=== PATIENT | female | born 1980 | race Caucasian/White ===

== ENCOUNTER 2019-03-19 15:51 | Emergency (ER) | payer MEDICAID, SELFPAY ==
[2019-03-19 15:51] VITALS: BP 110/72; PULSE 85; RESP 16; TEMP 36.7; O2SAT 100
[2019-03-19 16:16] LABS: Absolute Lymphocyte Count 1.92 X10^3/uL (0.83-4.51); Basophil# 0.05 X10^3/uL; Basophil% 0.6 % (0-1); Eosinophil# 0.11 X10^3/uL; Eosinophils% 1.4 % (0-5); Hematocrit 39.8 % (37-47); Hemoglobin 13.6 g/dL (12.0-15.0); Lymphocyte # 1.92 X10^3/ul (4.0); Lymphocyte % 24.8 % (19-41); Mean Corp Hgb Conc 34.2 g/dL (32-36); Mean Corpuscular Hgb 30.7 pg (27.0-32.0); Mean Corpuscular Volume 89.8 fL (81-99); Mean Platelet Vol. 10.5 fl (6.2-12.0); Monocyte# 0.62 X10^3/uL; NRBC Flagged by Analyzer 0 % (0-5); Neutrophil # 5.04 X10^3/uL (2.7-7.7); Neutrophil % 65.1 % (47-70); Platelet Count 218 K/mm3 (150-450); RBC Distribution Width SD 39.7 fl (35.1-43.9); Red Blood Count 4.43 M/mm3 (4.2-5.4); White Blood Count 7.8 K/mm3 (4.4-11.0)
[2019-03-19 16:32] LABS: Internal QC Validated? YES +Cl - CLEAR BKGD; Pregnancy, Serum, hCG Quali. NEGATIVE Negative
[2019-03-19 16:36] LABS: Anion Gap 3 (5-15); BUN 10 mg/dL (7-18); BUN/Creat Ratio 11.8 RATIO (10-20); Calcium,Total 9.2 mg/dL (8.5-10.1); Chloride 107 mmol/L (98-107); Creatinine, Serum 0.85 mg/dL (0.55-1.02); EST Glomerular Filtration Rate 79 mL/min (>60); Est Glom Filt Rate - Afr Amer 96 mL/min (>60); Estimated Creatinine Clearance 89.64 ml/min; Glucose 91 mg/dL (74-106); Potassium 4.2 mmol/L (3.5-5.1); Sodium Level 137 mmol/L (136-145)
--- NOTE | 2019-03-19 16:54 | ED.VISSUMM ---
- ER Visit Summary Date of Service: 03/19/19 Chief Complaint: Abdominal pain History of Present Illness: The patient is a 39 F presenting with abdominal pain. She states this started this morning. She complains of epigastric abdominal pain. She denies nausea or vomiting. She states she had diarrhea today. She denies blood in her stool. Denies fever. Denies urinary complaints. Denies chest pain or shortness of breath. She states the symptoms are starting to subside. Denies other complaints. Physical Examination: Vitals are stable. Patient is afebrile. Alert no acute distress. HEENT exam is unremarkable. Neck is supple. Lungs are clear and equal bilaterally. Heart is regular rate and rhythm. Abdomen is soft nontender nondistended. No guarding or rebound Extremities are unremarkable. Skin is warm and dry. No focal neurologic deficit. Remainder of exam is unremarkable. Emergency Department Course and Treatment: CBC, chemistries unremarkable. Total bili 1.8. Direct bili 0.31. Lipase is normal. hCG negative. Gallbladder ultrasound shows mild R right hydronephrosis. Correlation with stone protocol CT would be useful. Fatty infiltration of liver. CT abdomen/pelvis shows Bilateral fullness of the renal collecting system without hydronephrosis or ureteral calculus. Cannot exclude coexisting parapelvic cysts. No evidence for bowel obstruction. Normal appendix. On reevaluation, patient is resting comfortably. Her pain has resolved. She is advised to follow-up with primary care physician and urology. Advised return to ED for worsening complaints. Disposition: Discharge home Impression: Abdominal pain This note was generated with [employer] dictation software. It may contain incorrect words, spelling, and punctuation that were not noted in review of the chart prior to signing ED Disposition - Plan for ED Patient: Instructions: ABDOMINAL PAIN, Unknown Cause, (Female) Referrals: Arnav Larsen III, MD [STAFF PHYSICIAN] - Philip Forrester MD [STAFF PHYSICIAN] -
[2019-03-19 17:17] LABS: Bacteria 0 SEEN /hpf (None Seen); Mucous, Urine 0 SEEN /hpf (<or=2+); Red Blood Cells-Urine 0 SEEN /hpf (0-5); White Blood Cells 0 SEEN /hpf (0-5)
[2019-03-19 17:35] LABS: Color, Urine Yellow (Yellow); Glucose, Dipstick Normal (Normal); Ketone-Dipstick 5 mg/dl (Negative); Leukocyte Esterase-Dipstick Negative /ul (Negative); Nitrite-Dipstick Negative (Negative); Occult Blood-Urine Negative /ul (Negative); Protein-Dipstick Negative (Negative); Specific Gravity, Urine 1.005 (1.002-1.030); Urine Bilirubin Dipstick Negative (Negative); Urine Clarity Clear (Clear); Urine Urobilinogen Normal (Normal)
[2019-03-19 17:45] LABS: Amorphous Sediment 1+; Squamous Epithelial Cells - UA 0-5 SEEN /hpf (5-10)
[2019-03-19 17:51] VITALS: BP 112/76; PULSE 71; RESP 16; O2SAT 97
[2019-03-19 17:51] LABS: AST(SGOT) 28 U/L (15-37); Alanine Aminotransfer ALT/SGPT 23 U/L (13-56); Albumin, Serum 4.3 g/dL (3.2-5.0); Alkaline Phosphatase 74 U/L (45-117); Bilirubin, Direct 0.31 mg/dL (0.00-0.30); Globulin 4.2 g/dL (2.2-4.2); Lipase 140 U/L (73-393); Protein, Total 8.5 g/dL (6.4-8.2)
--- NOTE | 2019-03-19 17:57 | US_ITS ---
STUDY: ABDOMINAL ULTRASOUND - RIGHT UPPER QUADRANT REASON FOR VISIT: Female, 39 years old. Abdominal pain TECHNIQUE: Ultrasound evaluation of the right upper quadrant was performed with real-time and static james-scale imaging. TECHNICAL QUALITY: Adequate. COMPARISON: None. FINDINGS: Liver: The liver measures 13.3 cm. There is increased echogenicity consistent with fatty infiltration. The bile ducts are within normal limits. There is hepatic color flow. The direction of portal flow is hepatopetal. There is no demonstrated mass lesion. Gallbladder: Normal distended gallbladder. The gallbladder wall measures 2 mm. There is a negative sonographic Mitchell's sign. There is no pericholecystic fluid. There are no gallstones. Common Bile Duct (C.B.D.): The common bile duct measures 4 mm. Pancreas: Normal size of the head, body and tail of the pancreas. There is normal echogenicity of the pancreas. There is no demonstrated pancreatic mass or cyst. Right Kidney: Normal size of the right kidney. The right kidney measures 11.7 cm. Normal renal cortex. The right cortex measures 1.6 cm. There is no demonstrated renal mass or cyst. There is mild hydronephrosis of the right kidney. US/Gallbladder IMPRESSION: 1. Mild R right hydronephrosis. Correlation with stone protocol CT would be useful. 2. Fatty infiltration of liver. Electronically Signed: Rajiv Yoon MD at 18:33 EDT Tel , Service support ,
--- NOTE | 2019-03-19 18:54 | CT_ITS ---
STUDY: CT ABDOMEN AND PELVIS WITHOUT CONTRAST REASON FOR EXAM: Female, 39 years old. Pain and diarrhea RADIATION DOSAGE (If Supplied By Facility): CTDIvol = ( 10.72 ) mGy, DLP = ( 573.10 ) mGycm TECHNIQUE: Transaxial images were obtained from the dome of the diaphragm to the symphysis pubis without oral contrast, and without intravenous contrast. Sagittal and coronal images were reconstructed. Individualized dose optimization techniques were used for this CT. COMPARISON: None. FINDINGS: The visualized lung bases are unremarkable. The visualized portions of the heart are within normal limits. Normal liver. Normal gallbladder and extrahepatic biliary system. Normal spleen. Normal pancreas. Normal bilateral adrenal glands. There is fullness of the renal collecting systems bilaterally without evidence for hydroureter or ureteral calculus. Cannot exclude possibility of parapelvic renal cysts. No other renal mass identified. Normal visualized stomach. Normal small intestine. Normal colon. The appendix is visualized and appears normal. Normal abdominal aorta. Normal inferior vena cava. Normal retroperitoneum. Incompletely distended thick-walled bladder likely of no significance Small fat-containing periumbilical hernia.. Normal osseous structures. CT/Abdomen/Pelvis without Cont IMPRESSION: Bilateral fullness of the renal collecting system without hydronephrosis or ureteral calculus. Cannot exclude coexisting parapelvic cysts. No evidence for bowel obstruction. Normal appendix. Electronically Signed: Asim Armendariz MD at 19:22 EDT , Service support ,
[2019-03-19 19:00] VITALS: BP 114/78; PULSE 72; RESP 16; O2SAT 97
--- NOTE | 2019-03-19 19:59 | ED.DEP ---
ED Disposition - Plan for ED Patient: Instructions: ABDOMINAL PAIN, Unknown Cause, (Female) Referrals: Arnav Larsen III, MD [STAFF PHYSICIAN] - Philip Forrester MD [STAFF PHYSICIAN] -
[2019-03-19 20:11] VITALS: BP 114/78; PULSE 72; RESP 16; O2SAT 97
== END 2019-03-19 20:11 | disposition home or self-care (01) ==
LOC: ED 17:02
PROVIDERS: Emergency Provider Emergency Medicine
DX: R10.13 Epigastric pain (principal)
CPT/HCPCS: 74176; 76705; 80048; 80076; 81001; 83690; 84703; 85025; 99283; A4216

== ENCOUNTER 2021-09-02 21:59 | Emergency (ER) | payer MEDICAID, SELFPAY ==
[2021-09-02 22:00] VITALS: BP 125/79; PULSE 78; RESP 16; TEMP 36.9; O2SAT 99; BMI 24.3
--- NOTE | 2021-09-02 22:16 | EDS_ITS ---
HPI History of Present Illness Chief Complaint: Headache Informant: patient Narrative Narrative: Patient presents with concern for Covid. She has a coworker that she was exposed to that had Covid. She has about 2 maybe 3 days of some mild cough that is nonproductive. She is not short of breath. She has a little bit of malaise. She has a very slight headache in the front of the head. She has had some mild nausea but no vomiting. She had mild diarrhea about a day or 2 ago but none now. She is eating and drinking. Her smell is little down but her taste is intact. No significant myalgias. No trauma or injury. No documented fever. Nothing makes symptoms better or worse but she has not really tried anything. Patient has not had Covid vaccines. She is a non-smoker. PFSH PFSH Home Medications ondansetron 4 mg PO Q8H PRN #10 tab 09/02/21 [Rx Last Taken Unknown] Allergy/AdvReac Type Severity Reaction Status Date / Time No Known Allergies Allergy Verified 03/19/19 16:41 Social History Smoking Status: Never smoker ROS ROS ED Constitutional Constitutional ED: Reports subjective; Denies fever(s) Eyes Eyes: Denies blurry vision or change in vision ENT ENT ED: Reports rhinorrhea; Denies sore throat Cardiovascular Cardiovascular: Denies chest pain Respiratory/Chest Respiratory/Chest: Reports cough; Denies dyspnea or sputum Gastrointestinal Gastrointestinal: Reports nausea; Denies abdominal pain, diarrhea or vomiting Genitourinary Genitourinary ED: Denies dysuria Musculoskeletal Musculoskeletal: Denies myalgias Integumentary Denies rash Neurologic Neurologic: Reports headache(s); Denies paresthesias or weakness Endocrine Endocrinology: Denies polydipsia or polyuria Allergic/Immunologic Allergic/Immunologic ED: Denies mouth swelling or urticaria EXAM Physical Exam Const Vital Signs: 09/02/21 22:00 Temperature 98.4 F Temperature Source Temporal Pulse Rate 78 Respiratory Rate 16 Blood Pressure 125/79 H Blood Pressure Mean 94 Pulse Ox 99 Oxygen Delivery Method Room Air Positive well nourished and well developed General Appearance ED: well developed and NAD HEENT HEENT Narrative: No sinus tenderness. Mild nasal congestion. Oropharynx is moist and normal. No temporal artery tenderness. Negative for trauma or tenderness Eyes PERRL and EOMs intact bilaterally Eyes Narrative: No photophobia Neck no lymphadenopathy Chest Wall inspection of chest normal Resp normal respiratory effort and clear to auscultation bilaterally Effort and Inspection: Negative for pain with movement Auscultation: Negative for rales, rhonchi or wheezes Cardio regular rate GI normal to inspection, nondistended, normoactive bowel sounds and non-tender Palpation: soft Back/Spine no CVA tenderness Extremity normal to inspection Neuro Sensorium / Orientation: alert Psych mental status grossly normal Skin no rashes or lesions noted MDM MDM MDM Narrative Medical decision making narrative: This patient is primarily concerned with having Covid. Her headache is quite minimal. She has no trauma. She has had mild nausea but no vomiting. She is eating and drinking. She is actually drink ing water when I am in the room. Her lungs are clear. She is not at all hypoxic nor is she dyspneic. I explained to the patient I can get her something for her nausea. We discussed Covid testing. She would prefer to have the PCR even if it does not come back tonight. I told her she should quarantine until she gets these results. We discussed returning with dyspnea, recurrent vomiting or other concerns. Discharge Plan Triage Chief Complaint: Headache ED Provider: Minh Mclean Dx/Rx/DC Orders Clinical Impression: Close exposure to 2019-nCoV, Cough, Nausea Instructions: Coronavirus Disease 2019 (COVID-19): Caring for Yourself or Others, ED Cough Chronic Uncertain Cause Adult Prescriptions: New ondansetron 4 mg tablet,disintegrating 4 mg PO Q8H PRN (Reason: nausea and vomiting) Qty: 10 RF: 0 Primary Care Provider: Care Physician,No Primary Referrals: Yeison Dejesus MD [STAFF PHYSICIAN] - 1 Week if not improving Care Physician,No Primary [Primary Care Provider] - Disposition Disposition: Home, Self Care
[2021-09-02] MEDS: Ondansetron ODT 4 MG Tablet PO (22:33)
== END 2021-09-02 22:47 | disposition home or self-care (01) ==
PROVIDERS: Emergency Provider Emergency Medicine; Visit Provider Emergency Medicine
DX: R11.0 Nausea (principal); R51.9 Headache, unspecified; R05.9 Cough, unspecified; Z20.822 Contact with and (suspected) exposure to COVID-19
CPT/HCPCS: U0003; 87635; 99283; U0005

== ENCOUNTER 2024-05-09 20:42 | Emergency (ER) | payer SELFPAY ==
[2024-05-09 20:43] VITALS: BP 127/87; PULSE 77; RESP 18; TEMP 36.6; O2SAT 98; BMI 28.3
--- NOTE | 2024-05-09 20:48 | EDS_ITS ---
HPI History of Present Illness Chief Complaint: Upper Extremity Injury PFSH PFSH Allergy/AdvReac Type Severity Reaction Status Date / Time No Known Allergies Allergy Verified 05/09/24 20:43 Social History (Updated 06/23/23 @ 13:18 by Esther Keating MA) household members: children current occupational status: employed current occupation: [email or web address] pets and animals: Yes pets and animals: cat(s) and dog(s) history of recent travel: No sexually active: No Smoking Status: Former smoker how long ago did patient quit smoking: when she was 18 alcohol intake: never substance use type: does not use caffeine: Yes (1) Type: carbonated beverages frequency: daily seatbelt use: always do you feel safe at home: Yes EXAM Physical Exam Const Vital Signs: 05/09/24 20:43 Temperature 97.9 F Temperature Source Temporal Pulse Rate 77 Respiratory Rate 18 Blood Pressure 127/87 H Blood Pressure Mean 100 Pulse Ox 98 Oxygen Delivery Method Room Air MDM MDM MDM Narrative Medical decision making narrative: HISTORY OF PRESENT ILLNESS: 44 female presents with left middle finger pain. Patient is right-hand dominant. States dog pulled the leash out of her hand and injured her left middle finger. She further states REVIEW OF SYSTEMS: Pertinent positives: Left middle finger pain Pertinent negatives: fever PHYSICAL EXAM: Nursing triage notes reviewed, Vital signs reviewed Constitutional: please see mdm Extremities: No edema, left third digit has an obvious step-off deformity along the middle interphalangeal joint with slight rotation consistent with likely dislocation Neuro: M intact 5/5 strength with ok sign (median), intact finger abduction (ulnar) intact wrist extension (radial n). Intact sensation in the radial, ulnar, and median nerve distributions. Skin: No rash or lesions noted MEDICAL DECISION MAKING: Chief Complaint: Finger pain External records reviewed: Prior imaging reviewed: Recent [facility] imaging the involved extremity MDM Narrative: Patient was hemodynamically stable, exam with likely middle interphalangeal joint dislocation versus fracture ALL IMAGES (IF OBTAINED) HAVE BEEN PERSONALLY REVIEWED AND INTERPRETED BY MYSELF. X-ray obtained, x-ray was read and reviewed personally by myself and showed obvious fracture of the middle phalanx of the third digit. Finger splint applied. Pain medication given. The patient and/or family, caregivers express understanding. The patient and/or family, caregivers agrees with the plan. Shared decision making: I will have a discussion with the patient and or visitors regarding risk/benefits of further testing or admission. They will be made aware of of the risk/benefits inherent in this decision they will be given the opportunity to voice understanding. Total critical care time today provided was at least 0 minutes. This excludes separately billable procedures. Critical care time (if documented) is secondary to the patient having high probability of clinically significant/life threatening deterioration in the patient's condition which required my urgent intervention. Impression: 1. Acute finger pain 2. Left third middle phalanx fracture Dispo: Discharge home This note was generated with [employer] dictation software. It may contain incorrect words, spelling, and punctuation that were not noted in review of the chart prior to signing. Discharge Plan Triage Chief Complaint: Upper Extremity Injury ED Provider: Rei Vega Dx/Rx/DC Orders Primary Care Provider: Care Physician,No Primary Referrals: Care Physician,No Primary [Primary Care Provider] - Print Language: Divehi
--- NOTE | 2024-05-09 20:52 | RAD_ITS ---
EXAM: XR LEFT HAND COMPLETE, 3 OR MORE VIEWS CLINICAL INDICATION: finger pain TECHNIQUE: Frontal, lateral and oblique views of the left hand. COMPARISON: No relevant prior studies available. FINDINGS: BONES/JOINTS: Comminuted although nondisplaced and nonangulated fracture of the third middle phalanx without discrete intra-articular extension. Preservation of the joint space. No sclerotic or destructive changes observed. SOFT TISSUES: Soft tissue swelling of the second and third digits. No radiopaque foreign body. RAD/Hand Min 3 Views IMPRESSION: Comminuted although nondisplaced and nonangulated fracture of the third middle phalanx without discrete intra-articular extension. Electronically Signed: Chase Stanley DO at 21:19 EDT ,
[2024-05-09] MEDS: Ibuprofen 200 MG Tablet 400 MG PO (21:09)
[2024-05-09] MEDS: Acetaminophen 325 MG Tablet PO (21:09)
[2024-05-09 21:25] VITALS: BP 123/76; PULSE 72; RESP 18; TEMP 36.6; O2SAT 100
== END 2024-05-09 21:26 | disposition home or self-care (01) ==
LOC: ED 21:07
PROVIDERS: Emergency Provider Emergency Medicine; Visit Provider Emergency Medicine
DX: S62.623A Displaced fracture of middle phalanx of left middle finger, initial encounter for closed fracture (principal); X50.9XXA Other and unspecified overexertion or strenuous movements or postures, initial encounter; Z87.891 Personal history of nicotine dependence
CPT/HCPCS: 73130; 99283

== ENCOUNTER 2024-09-27 10:20 | Emergency (ER) | payer SELFPAY ==
[2024-09-27 10:21] VITALS: BP 103/73; PULSE 88; RESP 16; TEMP 36.6; O2SAT 100; BMI 28.0
--- NOTE | 2024-09-27 11:11 | EDS_ITS ---
HPI <MARC Kumar - Last Filed: 09/27/24 15:04> History of Present Illness Chief Complaint: Nausea/Vomiting Narrative Narrative: 44-year-old female with no past medical history states she has had 3 days of malaise, cough, vomiting and diarrhea. She states her fianc? was here this week and tested positive for influenza. She last vomited yesterday but has had decreased appetite and tried to eat some chicken noodle soup last night but did not have much. She got up around 3 AM and went to the bathroom and felt lightheaded and fell but did not lose consciousness. She denies hitting her head or sustaining injuries. She denies chest pain or shortness of breath. PFSH <MARC Kumra - Last Filed: 09/27/24 15:04> PFSH Allergy/AdvReac Type Severity Reaction Status Date / Time No Known Allergies Allergy Verified 09/27/24 10:23 Social History (Updated 06/23/23 @ 13:18 by Esther Keating MA) household members: children current occupational status: employed current occupation: [email or web address] pets and animals: Yes pets and animals: cat(s) and dog(s) history of recent travel: No sexually active: No Smoking Status: Former smoker how long ago did patient quit smoking: when she was 18 alcohol intake: never substance use type: does not use caffeine: Yes (1) Type: carbonated beverages frequency: daily seatbelt use: always do you feel safe at home: Yes ROS <MARC Kumar - Last Filed: 09/27/24 15:04> ROS ED ROS Narrative Constitutional: Negative for fever, chills. CVS: Negative for palpitations, chest pain. Respiratory: Positive for cough. Negative for shortness of breath. GI: Positive for vomiting, diarrhea. Negative for abdominal pain. : Negative for dysuria. Neuro: Negative for headache. EXAM <MARC Kumar - Last Filed: 09/27/24 15:04> Physical Exam Narrative Exam Narrative: CONST: Patient sitting in no acute distress. EYES: Normal inspection. NECK: Normal inspection. RESP: No respiratory distress, CTAB. CVS: Regular rate and rhythm, no murmur, no gallop. ABD: Soft and nontender, no guarding or rebound, nondistended. SKIN: Color normal, no rash, warm, dry, intact. EXTREMITIES: Normal appearance, no pedal edema. NEURO: Alert and answering questions appropriately. PSYCH: Normal affect. Const Vital Signs: 09/27/24 10:21 09/27/24 12:21 09/27/24 14:00 Temperature 97.9 F Temperature Source Oral Pulse Rate 88 84 81 Respiratory Rate 16 16 16 Blood Pressure 103/73 100/80 106/84 H Blood Pressure Mean 83 86 91 Pulse Ox 100 99 95 Oxygen Delivery Method Room Air <Dr. Isacc Vega DO - Last Filed: 09/27/24 20:41> Physical Exam Const Vital Signs: 09/27/24 10:21 09/27/24 12:21 09/27/24 14:00 Temperature 97.9 F Temperature Source Oral Pulse Rate 88 84 81 Respiratory Rate 16 16 16 Blood Pressure 103/73 100/80 106/84 H Blood Pressure Mean 83 86 91 Pulse Ox 100 99 95 Oxygen Delivery Method Room Air MDM <MARC Kumar - Last Filed: 09/27/24 15:04> [facility] Narrative Medical decision making narrative: 44-year-old female presents with fatigue, cough, and lightheadedness that caused a fall. She denies syncope. She is awake alert no distress. Vital signs are stable and overall her exam is benign. CBC is unremarkable. BMP shows normal electrolytes and renal function. Total bilirubin of 1.40 is lower than previous and the rest of her liver panel was normal. test is negative. Urinalysis has ketones but no infection. Viral swab is positive for influenza A. Suspect x-ray negative. Since D-dimer was elevated a CTA was ordered which is negative for PE or acute findings. After IV fluids she is feeling improved. I suspect her lightheadedness was secondary to dehydration and influenza A. I discussed conservative management and she was discharged in stable condition. Lab Data Attestation: I reviewed the patient's lab results. Labs: Laboratory Results - last 24 hr 09/27/24 12:10 WBC 5.1 RBC 4.19 L Hgb 12.8 Hct 38.0 MCV 90.7 MCH 30.5 MCHC 33.7 RDW Std Deviation 41.0 RDW Coeff of Salome 12.3 Plt Count 157 MPV 10.8 Immature Gran % (Auto) 0.600 Neut % (Auto) 79.1 H Lymph % (Auto) 12.6 L Hill % (Auto) 7.3 Eos % (Auto) 0.0 Baso % (Auto) 0.4 Absolute Neuts (auto) 4.0 Absolute Lymphs (auto) 0.64 L Nucleated RBC % 0 D-Dimer Quant (PE/DVT) 0.76 H* Sodium 135 L Potassium 3.8 Chloride 102 Carbon Dioxide 24.0 Anion Gap 9 BUN 16 Creatinine 0.87 Estim Creat Clear Calc 93.65 Est GFR (MDRD) Af Amer 91 Est GFR (MDRD) Non-Af 75 BUN/Creatinine Ratio 18.4 Glucose 84 Calcium 9.0 Total Bilirubin 1.40 H AST 30 ALT 19 Alkaline Phosphatase 58 Troponin I High Sens 5 Total Protein 8.2 Albumin 4.1 Globulin 4.1 Albumin/Globulin Ratio 1.0 Serum , Qual NEGATIVE Urine Color Yellow Urine Clarity Cloudy Urine pH 6.0 Ur Specific [place] 1.020 Urine Protein 30 H Urine Glucose (UA) Normal Urine Ketones 150 A* Urine Occult Blood 10 H Urine Nitrite Negative Urine Bilirubin Negative Urine Urobilinogen Normal Ur Leukocyte Esterase 25 H Urine RBC 0 SEEN Urine WBC 0-5 SEEN Ur Squamous Epith Cells 10-25 SEEN Urine Bacteria 2+ Urine Mucus RARE Radiography Diagnostic Testing: Clinical Impression(s) from Imaging Studies Chest X-Ray 09/27/24 12:35 IMPRESSION: No acute radiographic process. Reading Location: [facility] Chest CTA 09/27/24 12:49 IMPRESSION: No acute thromboembolic disease. One or more dose reduction techniques were used (e.g., Automated exposure control, adjustment of the mA and/or kV according to patient size, use of iterative reconstruction technique). Reading Location: [facility] ED attending interpretation of 2-view chest x-ray shows normal heart size, no acute infiltrate. EKG Initial EKG: Attestation: I personally reviewed and interpreted this EKG as follows: Interpretation: Sinus Rhythm and No Acute Injury Pattern Comments: Normal sinus rhythm at 76 bpm Nonspecific T wave changes Normal intervals, no acute ischemic changes <Dr. Isacc Vega, DO - Last Filed: 09/27/24 20:41> [facility] MDM Narrative Medical decision making narrative: 44-year-old female presents with fatigue, cough, and lightheadedness that caused a fall. She denies syncope. She is awake alert no distress. Vital signs are stable and overall her exam is benign. CBC is unremarkable. BMP shows normal electrolytes and renal function. Total bilirubin of 1.40 is lower than previous and the rest of her liver panel was normal. test is negative. Urinalysis has ketones but no infection. Viral swab is positive for influenza A. Suspect x-ray negative. Since D-dimer was elevated a CTA was ordered which is negative for PE or acute findings. After IV fluids she is feeling improved. I suspect her lightheadedness was secondary to dehydration and influenza A. I discussed conservative management and she was discharged in stable condition. Supervisory Physician Note Patient was seen and examined with the Advanced Practice Provider. Nursing notes and vital signs have been reviewed. Pertinent old records have been reviewed. I agree with the essential elements of the WILTON's history, physical exam, assessment, and plan. The differential diagnosis and management options were discussed with the WILTON. I participated in determining and agree with the management, procedures, final impression and disposition as documented. See changes noted by me. Please see addendum or separate note for any additional details. Gen: A&O x3, NAD Head: Normocephalic, atraumatic Eyes: No sclera icterus, conjunctiva clear ENT: Mildly dry mucous membranes Neck: Trachea midline, No JVD CV: RRR, no murmurs, no peripheral edema Resp: Lungs CTA BL, no w/r/c GI: Abd soft, non-distended, non-tender, no r/r/g Musc: Full ROM, no deformity Skin: Warm, dry Neuro: Alert, oriented, grossly intact, sensation intact Psych: Cooperative, appropriate mood and affect Impression: 1. Influenza A infection 2. Dehydration 3. Lightheadedness, resolved 4. Mechanical fall Lab Data Labs: Laboratory Results - last 24 hr 09/27/24 12:10 WBC 5.1 RBC 4.19 L Hgb 12.8 Hct 38.0 MCV 90.7 MCH 30.5 MCHC 33.7 RDW Std Deviation 41.0 RDW Coeff of Salome 12.3 Plt Count 157 MPV 10.8 Immature Gran % (Auto) 0.600 Neut % (Auto) 79.1 H Lymph % (Auto) 12.6 L Hill % (Auto) 7.3 Eos % (Auto) 0.0 Baso % (Auto) 0.4 Absolute Neuts (auto) 4.0 Absolute Lymphs (auto) 0.64 L Nucleated RBC % 0 D-Dimer Quant (PE/DVT) 0.76 H* Sodium 135 L Potassium 3.8 Chloride 102 Carbon Dioxide 24.0 Anion Gap 9 BUN 16 Creatinine 0.87 Estim Creat Clear Calc 93.65 Est GFR (MDRD) Af Amer 91 Est GFR (MDRD) Non-Af 75 BUN/Creatinine Ratio 18.4 Glucose 84 Calcium 9.0 Total Bilirubin 1.40 H AST 30 ALT 19 Alkaline Phosphatase 58 Troponin I High Sens 5 Total Protein 8.2 Albumin 4.1 Globulin 4.1 Albumin/Globulin Ratio 1.0 Serum , Qual NEGATIVE Urine Color Yellow Urine Clarity Cloudy Urine pH 6.0 Ur Specific [place] 1.020 Urine Protein 30 H Urine Glucose (UA) Normal Urine Ketones 150 A* Urine Occult Blood 10 H Urine Nitrite Negative Urine Bilirubin Negative Urine Urobilinogen Normal Ur Leukocyte Esterase 25 H Urine RBC 0 SEEN Urine WBC 0-5 SEEN Ur Squamous Epith Cells 10-25 SEEN Urine Bacteria 2+ Urine Mucus RARE Radiography Diagnostic Testing: Clinical Impression(s) from Imaging Studies Chest X-Ray 09/27/24 12:35 IMPRESSION: No acute radiographic process. Reading Location: [facility] Chest CTA 09/27/24 12:49 IMPRESSION: No acute thromboembolic disease. One or more dose reduction techniques were used (e.g., Automated exposure control, adjustment of the mA and/or kV according to patient size, use of iterative reconstruction technique). Reading Location: [facility] Discharge Plan Triage Chief Complaint: Nausea/Vomiting ED Midlevel Provider: Diamante Whelan ED Provider: Isacc Vega Dx/Rx/DC Orders Clinical Impression: Influenza A, Dehydration, Lightheaded Instructions: ED Influenza (Adult) Stand Alone Forms: ED Work / School Excuse Primary Care Provider: Care Physician,No Primary Referrals: Care Physician,No Primary [Primary Care Provider] - Activity Restrictions/Additional Instructions: You tested positive for influenza A. Your urine shows signs of dehydration which is likely the cause of your lightheadedness. Rest, drink plenty of fluids, take Tylenol or Motrin as needed for fever or pain. You can use [id number] decongestants or cough medication if needed. Influenza can last 7 to 10 days. If symptoms worsen or you have difficulty breathing come back to the ER. Print Language: Hong Konger Disposition Disposition: Home, Self Care Discharge Date/Time: 09/27/24 15:15
--- NOTE | 2024-09-27 11:29 | EKG12_ITS ---
Test Reason : GENERAL Blood Pressure : */* mmHG Vent. Rate : 76 BPM Atrial Rate : 76 BPM P-R Int : 118 ms QRS Dur : 74 ms QT Int : 358 ms P-R-T Axes : 64 -2 -15 degrees QTcB Int : 402 ms Normal sinus rhythm Low voltage QRS Nonspecific T wave abnormality Abnormal ECG No previous ECGs available Confirmed by CIPRIANO COX, STEFANIE ([id number]), editor farm journal AKASH HARPER ([id number]) on 09/29/2024 8:59:35 AM Referred By: Confirmed By: STEFANIE COTA MD
[2024-09-27 12:18] LABS: Red Blood Cells-Urine 0 SEEN /hpf (0-5)
[2024-09-27 12:21] VITALS: BP 100/80; PULSE 84; RESP 16; O2SAT 99
[2024-09-27 12:25] LABS: Color, Urine Yellow (Yellow); Glucose, Dipstick Normal (Normal); Leukocyte Esterase-Dipstick 25 /ul (Negative); Nitrite-Dipstick Negative (Negative); Occult Blood-Urine 10 /ul (Negative); Protein-Dipstick 30 mg/dl (Negative); Urine Bilirubin Dipstick Negative (Negative); Urine Clarity Cloudy (Clear); Urine Urobilinogen Normal (Normal)
[2024-09-27 12:30] LABS: Absolute Lymphocyte Count 0.64 X10^3/uL (0.83-4.51); Basophil# 0.02 X10^3/uL; Basophil% 0.4 % (0-1); Hemoglobin 12.8 g/dL (12.0-15.0); Ketone-Dipstick 150 mg/dl (Negative); Lymphocyte # 0.64 X10^3/ul (0.83-4.51); Lymphocyte % 12.6 % (19-41); Mean Corp Hgb Conc 33.7 g/dL (32-36); Mean Corpuscular Hgb 30.5 pg (27.0-32.0); Mean Corpuscular Volume 90.7 fL (81-99); Mean Platelet Vol. 10.8 fl (6.2-12.0); Monocyte# 0.37 X10^3/uL; Monocyte% 7.3 % (0-10); NRBC Flagged by Analyzer 0 % (0-5); Neutrophil # 4.01 X10^3/uL (2.7-7.7); Neutrophil % 79.1 % (47-70); Platelet Count 157 K/mm3 (150-450); RBC Distribution Width CV 12.3 % (11.6-14.6); Red Blood Count 4.19 M/mm3 (4.2-5.4); White Blood Count 5.1 K/mm3 (4.4-11.0)
[2024-09-27 12:34] LABS: Internal QC Validated? YES +Cl - CLEAR BKGD; Pregnancy, Serum, hCG Quali. NEGATIVE Negative
--- NOTE | 2024-09-27 12:35 | RAD_ITS ---
PROCEDURE: CHEST PA AND LATERAL REASON FOR EXAM: Cough TECHNIQUE: Two-view chest x-ray COMPARISON: None. FINDINGS: The cardiothymic contour is normal. The lungs are clear. Bowel gas pattern is normal. No evidence of bowel obstruction or free air. The bones are unremarkable. No radiopaque foreign body is identified. RAD/Chest PA and Lateral IMPRESSION: No acute radiographic process. [facility]
[2024-09-27 12:38] LABS: AST(SGOT) 30 U/L (15-37); Alanine Aminotransfer ALT/SGPT 19 U/L (13-56); Albumin, Serum 4.1 g/dL (3.2-5.0); Alkaline Phosphatase 58 U/L (45-117); Anion Gap 9 (5-15); BUN 16 mg/dL (7-18); BUN/Creat Ratio 18.4 RATIO (10-20); Chloride 102 mmol/L (98-107); Creatinine, Serum 0.87 mg/dL (0.55-1.02); EST Glomerular Filtration Rate 75 mL/min (>60); Est Glom Filt Rate - Afr Amer 91 mL/min (>60); Estimated Creatinine Clearance 93.65 ml/min; Globulin 4.1 g/dL (2.2-4.2); Glucose 84 mg/dL (74-106); Potassium 3.8 mmol/L (3.5-5.1); Protein, Total 8.2 g/dL (6.4-8.2); Sodium Level 135 mmol/L (136-145); Troponin-I HS 5 pg/mL (3.0-54.0)
[2024-09-27 12:44] LABS: Bacteria 2+ /hpf (None Seen); D-Dimer Quantitative (DVT/PE) 0.76 FEU/ug/m (0.27-0.49); Mucous, Urine RARE /hpf (<or=2+); Squamous Epithelial Cells - UA 10-25 SEEN /hpf (5-10); White Blood Cells 0-5 SEEN /hpf (0-5)
[2024-09-27] MEDS: Ondansetron 4 MG/2 ML Vial IV (12:46)
[2024-09-27] MEDS: 0.9% Normal Saline (1000mL) 1,000 ML 999 ML IV (12:46)
--- NOTE | 2024-09-27 12:49 | CT_ITS ---
PROCEDURE: CTA CHEST W/WO CONTRAST REASON FOR EXAM: Short of breath TECHNIQUE: Chest CTA with intravenous contrast and 3D reconstructions. COMPARISON: None. FINDINGS: No acute thromboembolic disease. Lines and tubes: None. Mediastinum: No evidence of mediastinal hemorrhage. Heart: Normal heart size. No pericardial effusion. Thoracic Aorta: No evidence of acute traumatic aortic injury. Lungs and Airways: The lungs are normally expanded and clear. Pleura: No pleural effusion. No pneumothorax. Bones: No acute osseous abnormality identified. CT/CTA Chest W/WO Contrast IMPRESSION: No acute thromboembolic disease. One or more dose reduction techniques were used (e.g., Automated exposure contr ol, adjustment of the mA and/or kV according to patient size, use of iterative reconstruction technique). Reading Location: [facility]
[2024-09-27 14:00] VITALS: BP 106/84; PULSE 81; RESP 16; O2SAT 95
== END 2024-09-27 15:15 | disposition home or self-care (01) ==
PROVIDERS: Physician Assistant; Emergency Provider Surgery; Visit Provider Surgery
DX: J10.1 Influenza due to other identified influenza virus with other respiratory manifestations (principal); W19.XXXA Unspecified fall, initial encounter; R42 Dizziness and giddiness; E86.0 Dehydration; Z87.891 Personal history of nicotine dependence
CPT/HCPCS: 71046; 71275; 80053; 81001; 84484; 84703; 85025; 85379; 87631; 93005; 96361; 96374; 99283; Q9967; A4216; J2405